=== PATIENT | male | born 1990 | race Caucasian/White ===

== ENCOUNTER 2019-04-19 11:48 | Emergency (ER) | payer OTHER ==
[~2019-04-19] VITALS: Ht 200.7 cm; Wt 95.0 kg
[2019-04-19 12:59] VITALS: BP 111/54
[2019-04-19] MEDS ORDERED: BACITRACIN 15GM TUBE TOP ONE (13:15)
== END 2019-04-19 15:45 | disposition home or self-care (01) ==
LOC: ER 11:48
DX: T22.012A Burn of unspecified degree of left forearm, initial encounter (principal); T23.092A Burn of unspecified degree of multiple sites of left wrist and hand, initial encounter; X12.XXXA Contact with other hot fluids, initial encounter; Y93.89 Activity, other specified; Y92.89 Other specified places as the place of occurrence of the external cause
CPT/HCPCS: 16000; 99284

== ENCOUNTER 2019-04-21 10:44 | Emergency (ER) | payer OTHER ==
[~2019-04-21] VITALS: Ht 200.7 cm; Wt 100.0 kg
[2019-04-21] MEDS ORDERED: BACITRACIN ZINC OINT UDPKT TOP ONE (13:00)
[2019-04-21] MEDS ORDERED: BACITRACIN 15GM TUBE TOP SCH (13:15)
[2019-04-21 14:07] VITALS: BP 121/72
== END 2019-04-21 14:07 | disposition home or self-care (01) ==
LOC: ER 10:57
DX: Z48.00 Encounter for change or removal of nonsurgical wound dressing (principal); T22.112A Burn of first degree of left forearm, initial encounter; X12.XXXA Contact with other hot fluids, initial encounter; Y93.89 Activity, other specified; Y92.89 Other specified places as the place of occurrence of the external cause
CPT/HCPCS: 16020; 99284